=== PATIENT | female | born 1985 | race Caucasian/White ===

== ENCOUNTER 2019-06-05 17:47 | Inpatient (IN) | payer OTHER ==
[~2019-06-05] VITALS: Ht 167.6 cm; Wt 70.4 kg
[2019-06-05 18:41] LABS: HEMATOCRIT 46.2 % (36.0-47.0); HEMOGLOBIN 15.1 g/dl (12.0-15.5); MEAN CORPUSCULAR HEMOGLOBIN 29.9 pg (27.0-33.0); MEAN CORPUSCULAR HGB CONC 32.7 g/dl (32.0-36.5); MEAN CORPUSCULAR VOLUME 91.5 fl (80.0-96.0); PLATELET COUNT, AUTOMATED 213 10^3/uL (150-450); RED BLOOD COUNT 5.05 10^6/uL (4.00-5.40); WHITE BLOOD COUNT 10.3 10^3/uL (4.0-10.0)
--- NOTE | 2019-06-05 19:03 | REP ---
RIGHT ANKLE COMPLETE: 06/05/2019. Clinical history: Trauma, fell on ice. Findings: No prior studies. Four views show trimalleolar fracture with some lateral and posterior subluxation of the talus on the tibial plafond. Fracture medial malleolus is displaced as was the posterior malleolar fragment which is extending posteriorly and superiorly. There is a distal fibular fracture with posterior displacement and minimal angulation. The mortise joint is disrupted as described with the subluxation. Subtalar joints intact. Calcaneus without fracture. Talonavicular and calcaneocuboid joints normal. Impression: 1. Trimalleolar fracture with posterior and lateral subluxation of the talus on the tibial plafond. Electronically Signed by Judah Amin MD 06/05/2019 08:20 P
[2019-06-05 19:08] LABS: HCG, SERUM QUALITATIVE NEGATIVE (NEGATIVE)
[2019-06-05 19:10] LABS: BLOOD UREA NITROGEN 7 MG/DL (7-18); CALCIUM LEVEL 9.5 MG/DL (8.5-10.1); CARBON DIOXIDE LEVEL 28 MEQ/L (21-32); CHLORIDE LEVEL 108 MEQ/L (98-107); CREATININE FOR GFR 0.79 MG/DL (0.55-1.30); GLOMERULAR FILTRATION RATE > 60.0 (>60); GLUCOSE, FASTING 77 MG/DL (70-100); POTASSIUM SERUM 3.6 MEQ/L (3.5-5.1); SODIUM LEVEL 139 MEQ/L (136-145)
[2019-06-05] MEDS ORDERED: ONDANSETRON 4MG/2ML VIAL (J2405) IV ONE (19:15)
[2019-06-05] MEDS ORDERED: MORPHINE 4 MG/ML 1ML VIAL/SYRINGE (J2270) IV ONE (19:15)
--- NOTE | 2019-06-05 19:37 | REPVR ---
PROCEDURE INFORMATION: Exam: CT Right Lower Extremity Without Contrast, Ankle Exam date and time: 06/05/2019 7:09 PM Age: 33 years old Clinical indication: Injury or trauma; Fall; Initial encounter; Fracture, traumatic; Closed fracture; Ankle; Right; Not specified; Additional info: Further evaluate right ankle fracture; S/P fall TECHNIQUE: Imaging protocol: CT of the Right lower extremity without contrast was performed. Exam focused on the ankle. Radiation optimization: All CT scans at this facility use at least one of these dose optimization techniques: automated exposure control; mA and/or kV adjustment per patient size (includes targeted exams where dose is matched to clinical indication); or iterative reconstruction. COMPARISON: CR Ankle, complete 06/05/2019 6:12 PM FINDINGS: Bones/joints: Comminuted trimalleolar fracture with marked widening of the ankle mortise and rotation of the talus medially. Soft tissues: Soft tissue edema at the ankle. IMPRESSION: 1. Comminuted trimalleolar fracture with marked widening of the ankle mortise and rotation of the talus medially. 2. Soft tissue edema at the ankle. Electronically signed by: Roberto Carlos Pappas On 06/05/2019 19:37:44 PM
[2019-06-05] MEDS ORDERED: NS 1,000 ML IV SCH (19:48)
[2019-06-05] MEDS ORDERED: fentaNYL 100 MCG/2 ML INJECTION (J3010) IV ONE ×4 (20:00→21:00)
[2019-06-05] MEDS: propofoL 200 MG/20 ML VIAL IV PRN ×5 (20:10→20:29)
[2019-06-05 22:57] VITALS: BP 138/76
[2019-06-05] MEDS ORDERED: ACETAMINOPHEN TAB 650MG DOSE (2X325MG) PO PRN (23:00)
[2019-06-05] MEDS ORDERED: PROMETHAZINE INJ 25 MG/ML VIAL (J2550) IV PRN (23:00)
[2019-06-05] MEDS ORDERED: PERCOCET 5MG/325MG TAB PO PRN ×2 (23:00)
[2019-06-06] MEDS: LR 1,000 ML IV SCH ×3 (00:40→20:35)
[2019-06-06] MEDS: MORPHINE 4 MG/ML 1ML VIAL/SYRINGE (J2270) IV PRN ×4 (00:40→11:54)
--- NOTE | 2019-06-06 01:16 | REP ---
Clinical: Post reduction. Technique: Portable AP and lateral views of the right ankle. Findings: The patient is status post satisfactory reduction for comminuted medial and lateral ankle fractures. Overlying soft tissue swelling noted. Impression: Relatively satisfactory reduction. Electronically Signed by Bolivar Thurman MD 06/06/2019 01:07 A
[2019-06-06 05:57] VITALS: BP 139/74
[2019-06-06] MEDS ORDERED: ceFAZolin SOD 2 GM in IV 1 EA IV ONE (06:00)
--- NOTE | 2019-06-06 10:19 | CR ---
DATE OF CONSULTATION: 06/05/2019 CHIEF COMPLAINT: Right ankle pain and deformity. HISTORY OF PRESENT ILLNESS: This 33-year-old woman was out with her dog caused her to slip twisting the ankle. She had a significant ankle deformity and pain. Amelia a crack. Was brought into the emergency room (ER). Injury happened at 5:15. Emergency room (ER) x-rays revealed an ankle fracture-dislocation trimalleolar type with a large posterior malleolar fragment. CAT scan revealed same. The patient denies numbness, tingling. Complains of pain. ALLERGIES: NO KNOWN DRUG ALLERGIES. MEDICATIONS: Takes no medications. SURGICAL HISTORY: Multiple (C) sections. SOCIAL HISTORY: Her is in , deployed in [facility]. She does smoke cigarettes. She has several children at home the eldest of which is 18. REVIEW OF SYSTEMS: Complains only of ankle pain and deformity. She is not complaining of headache, shortness of breath, chest pain, abdominal pain, endocrine problems, or other medical malady. Not complaining of skin condition or any other musculoskeletal conditions. No neurologic issues. No endocrine issues. IMAGING: As above. CLINICAL EXAM: She is alert, oriented and cooperative. She is uncomfortable though appropriate. She is a pleasant person. female. Weighs approximately 150 pounds. No deformity except on the right lower extremity, which has an obvious fracture-dislocation. The foot is warm and well-perfused, nonedematous. No skin wounds. No fracture, blisters. Soft calves. No effusion at the knee. Contralateral side uninvolved. Conscious sedation administered by ER. I was present and reduced the fracture. Placed a long-leg cast. Split the cast. Postreduction x-rays reflect acceptable alignment AP and lateral. IMPRESSION: Trimalleolar fracture-dislocation now reduced. RECOMMENDATIONS: This is a surgical injury. I coordinated with Dr. Sarkar our foot and ankle specialist. The patient will be admitted for elevation, pain management, and definitive surgical intervention. Coordinated with the emergency as well as the operating room to put the patient on the operating room schedule tomorrow afternoon. Prior to surgery, the extremity will be inspected for blisters and Dr. Sarkar will likely proceed with the definitive fixation so long as the skin does not have fracture blisters. I talked about this with the patient who understands. For further details, please refer to the medical record.
[2019-06-06 14:14] VITALS: BP 142/87
[2019-06-06] MEDS ORDERED: fentaNYL 100 MCG/2 ML INJECTION (J3010) As Ordered ONE ×2 (15:14→17:39)
[2019-06-06] MEDS ORDERED: MIDAZOLAM INJ 2 MG/2 ML VIAL (J2250) As Ordered ONE ×2 (15:14→16:23)
[2019-06-06] MEDS ORDERED: ceFAZolin 2 GM/D5W 50 ML IV BAG (J0690 PER 500MG) As Ordered ONE (15:21)
[2019-06-06] MEDS ORDERED: MIDAZOLAM INJ 2 MG/2 ML VIAL (J2250) IV STA (15:49)
[2019-06-06] MEDS ORDERED: dexameTHASONE 4 MG/ML 1ML VIAL (J1100) As Ordered ONE (16:23)
[2019-06-06] MEDS ORDERED: fentaNYL 250 MCG/5 ML INJECTION (J3010) As Ordered ONE (16:23)
[2019-06-06] MEDS ORDERED: ROCURONIUM BROMIDE 50 MG/5 ML VIAL As Ordered ONE ×2 (16:23→16:37)
[2019-06-06] MEDS ORDERED: ONDANSETRON 4MG/2ML VIAL (J2405) As Ordered ONE ×2 (16:23→20:10)
[2019-06-06] MEDS ORDERED: SUGAMMADEX SODIUM 500 MG/5 ML VIAL (BRIDION) As Ordered ONE (16:23)
[2019-06-06] MEDS ORDERED: LIDOCAINE 2% INJ 100 MG/5 ML SDV (FOR ANES.) As Ordered ONE (16:23)
[2019-06-06] MEDS ORDERED: METOCLOPRAMIDE INJ 10MG/2ML VIAL (J2765) As Ordered ONE (16:23)
[2019-06-06] MEDS ORDERED: propofoL 200 MG/20 ML VIAL As Ordered ONE (16:23)
[2019-06-06] MEDS ORDERED: KETOROLAC 60 MG/2 ML VIAL (J1885) As Ordered ONE (16:37)
[2019-06-06] MEDS ORDERED: PHENYLephrine HCL 500 MCG/5 ML (100MCG/ML) SYRINGE (J2370) As Ordered ONE (16:38)
[2019-06-06] MEDS ORDERED: ACETAMINOPHEN 1000MG 100ML IV BTL (OFIRMEV) (J0131 PER 10MG) As Ordered ONE (16:38)
[2019-06-06] MEDS ORDERED: ROPIvacaine 0.5% 30 ML INJECTION (J2795 PER 1MG) ONE (18:57)
[2019-06-06] MEDS ORDERED: EPINEPHrine INJ 1 MG/ML 1ML VIAL ONE (18:57)
[2019-06-06] MEDS ORDERED: dexameTHASONE 10 MG/1 ML VIAL PRES.FREE (J1100) ONE (18:57)
[2019-06-06] MEDS ORDERED: DESFLURANE 240 ML INHALANT As Ordered ONE (19:14)
[2019-06-06] MEDS ORDERED: KETOROLAC 30 MG/ML VIAL (J1885) IV PRN (19:20)
[2019-06-06] MEDS ORDERED: MEPERIDINE INJ 25 MG/ML VIAL (J2175) As Ordered ONE (19:45)
[2019-06-06] MEDS: MEPERIDINE INJ 25 MG/ML VIAL (J2175) IV PRN ×2 (19:50→20:00)
[2019-06-06] MEDS ORDERED: MORPHINE 2 MG/ML 1ML VIAL (J2270) IV PRN ×2 (20:00→20:15)
[2019-06-06] MEDS ORDERED: fentaNYL 100 MCG/2 ML INJECTION (J3010) IV PRN (20:00)
[2019-06-06] MEDS ORDERED: ONDANSETRON 4MG/2ML VIAL (J2405) IV PRN (20:00)
[2019-06-06] MEDS ORDERED: LR 1,000 ML IV SCH (20:00)
[2019-06-06] MEDS ORDERED: oxyCODONE 5MG TAB As Ordered ONE (20:09)
[2019-06-06] MEDS ORDERED: FLEET ENEMA PR PRN (20:30)
[2019-06-06] MEDS ORDERED: oxyCODONE 5MG TAB PO PRN ×2 (20:30)
--- NOTE | 2019-06-06 20:46 | REP ---
C-ARM VIEWS RIGHT ANKLE: Multiple C-Arm views right ankle performed during placement of metallic plate and screws in the distal fibula as well as in the distal tibia. Final views show the osseous structures to be well aligned. The ankle mortise is anatomic. 3 minutes 8 seconds fluoroscopy time utilized. Electronically Signed by Luis Thao MD 06/07/2019 12:49 P
[2019-06-06 20:50] VITALS: BP 120/75
[2019-06-06 21:20] VITALS: BP 120/74
[2019-06-06 22:20] VITALS: BP 116/72
[2019-06-06 23:20] VITALS: BP 117/74
--- NOTE | 2019-06-07 00:14 | RO ---
DATE OF PROCEDURE: 06/06/2019 PREPROCEDURE DIAGNOSIS: Right trimalleolar fracture dislocation. POSTPROCEDURE DIAGNOSIS: Right trimalleolar fracture dislocation. PROCEDURE: Open reduction internal fixation right trimalleolar fracture. SURGEON: Kathia Sarkar MD [employer] CHAIN FEEDER: Jagjit Caban MD ANESTHESIA: General endotracheal, popliteal nerve block. ESTIMATED BLOOD LOSS: 100 mL. COMPLICATIONS: None. CONDITION: Stable to recovery. IMPLANTS: Synthes 8-hole one-third tubular plate, 5-hole one-third tubular plate with associated screws and two 4.0 mm cannulated screws. INDICATIONS: Altagracia Corrigan is a 33-year-old female who sustained a right trimalleolar fracture dislocation after a mechanical fall. Her ankle was preliminarily reduced in the emergency room (ER) and plans were made for surgery. The risks and benefits of surgery were discussed with the patient in detail and included but are not limited to infection, damage to nerves and blood vessels, continued pain and stiffness, need for additional procedures. Informed consent was obtained. DESCRIPTION OF PROCEDURE: The patient was met in the post-anesthesia care unit (PACU) where her right lower extremity was marked as the correct operative site. I did a skin check, and it was satisfactory for surgery. She underwent a popliteal nerve block. She was then taken to the operating room and underwent general anesthesia. A well-padded tourniquet was placed on the upper thigh. A Morgan was placed and removed at the end of the case. The right lower extremity was then prepped and draped in the normal sterile fashion. She received antibiotics within 60 minutes prior to incision. An official time-out was held where the correct patient, operative procedure, and operative side were verified. Following this, the leg was exsanguinated to 250 mmHg and tourniquet was inflated. An incision was made midway between the Achilles tendon and distal fibula. This was an extensile incision as the distal fibula fracture was extended quite proximal. I then dissected medial to the peroneal tendons and sural nerve was identified. This was protected throughout the case. FHL fascia was incised and retracted medially. The large posterior malleolar fracture was easily identified. It was cleaned of hematoma and debris. It was comminuted, especially at the proximal aspect. It was reduced using a ball spike and pinned in place. Reductions were confirmed on AP and especially lateral view. Articular surface was found to be intact without any step-off. I secured this with a 3.5 mm lag screw and then placed the 5-hole plate over the fracture as well, acting as a buttress. AP, lateral and oblique views were performed and found to be satisfactory with reduction and hardware placement of the posterior malleolar fracture. Next, attention was turned to the distal fibula. Peroneal tendons were retracted medially. Fibula was comminuted with a large butterfly fragment. It was reduced using a series of pointed reduction clamps after the fracture was cleaned of hematoma and debris. I was able to place a lag screw from lateral to medial. I then placed a posterior one-third tubular plate. This was secured with 3.5 mm and 4 cancellous screws. There was satisfactory reduction and hardware placement on multiple orthogonal views. At this point, copious irrigation was performed and #2-0 Vicryl sutures were used for partial closure of the posterior wound as there was concern that her swelling was increasing, and I wanted to ensure that there would be adequate closure at the end of the case. The tourniquet was then let down. I made an incision directly over the medial malleolus. Fracture was identified and cleaned of hematoma and debris. I reduced it with a pointed reduction clamp. I then placed two #4-0 partially threaded cannulated screws. There was adequate reduction on AP, lateral and oblique views. At this point, copious irrigation was performed. Soft tissues were closed with #3-0 Vicryl and skin was closed with #3-0 nylon. The patient was placed into a well-padded splint after a sterile dressing had been applied. She was extubated and transferred to the recovery room in stable condition. PLAN: The patient will be non-weightbearing on the right lower extremity for at least 6 weeks. She will have strict elevation and antibiotics for 24 hours. She will be on aspirin for deep vein thrombosis (DVT) prophylaxis.
[2019-06-07 00:24] VITALS: BP 114/72
[2019-06-07] MEDS: ACETAMINOPHEN 500 MG TAB PO SCH ×2 (00:40→05:11)
[2019-06-07] MEDS: ceFAZolin SOD 2 GM in IV 1 EA IV SCH ×2 (00:41→08:11)
[2019-06-07 01:22] VITALS: BP 115/71
[2019-06-07 05:11] VITALS: BP 118/69
[2019-06-07] MEDS: LR 1,000 ML IV SCH (06:15)
[2019-06-07] MEDS ORDERED: ASPI81CH33 PO (06:24)
[2019-06-07] MEDS ORDERED: ACET-683 PO (06:24)
[2019-06-07] MEDS ORDERED: OXYC-517 PO (06:24)
[2019-06-07] MEDS ORDERED: VITAMIN D 1,000 INTERNATIONAL UNITS TABLET PO SCH (09:00)
[2019-06-07] MEDS ORDERED: ASPIRIN 81 MG CHEW TABLET PO SCH (09:00)
[2019-06-07 10:00] VITALS: BP 118/74
== END 2019-06-07 11:15 | disposition home or self-care (01) | DRG 494 ==
LOC: M ED 17:47 → EDSEX 17:47 → EDBD 17:47 → M ED INP 21:00 → ENRESERV 22:21 → M MS5PR 22:48
PROVIDERS: ADMIT Orthopaedic Surgery; ATTEND Orthopaedic Surgery
PROC: 0QSJ04Z Reposition Right Fibula with Internal Fixation Device, Open Approach (ICD-10-PCS; principal; 2019-06-06 15:00)
DX: S82.851A Displaced trimalleolar fracture of right lower leg, initial encounter for closed fracture (principal); Y93.K1 Activity, walking an animal; W18.09XA Striking against other object with subsequent fall, initial encounter; Y92.89 Other specified places as the place of occurrence of the external cause; F17.210 Nicotine dependence, cigarettes, uncomplicated; Y99.8 Other external cause status

== ENCOUNTER → 2020-08-13 | Outpatient (REF) | payer OTHER ==
[~2020-08-13] MED LIST: ACET-683 PO; ASPI81CH33 PO; OXYC-517 PO
== END ==
LOC: M PLALAB 08:39
PROVIDERS: ATTEND Nurse Practitioner Women's Health
DX: Z12.4 Encounter for screening for malignant neoplasm of cervix (principal)

== ENCOUNTER → 2021-01-04 | Outpatient (CLI) | payer OTHER ==
[2021-01-04 15:05] LABS: HEMATOCRIT 39.3 % (36.0-47.0); HEMOGLOBIN 13.4 g/dl (12.0-15.5); MEAN CORPUSCULAR HEMOGLOBIN 30.1 pg (27.0-33.0); MEAN CORPUSCULAR HGB CONC 34.1 g/dl (32.0-36.5); MEAN CORPUSCULAR VOLUME 88.3 fl (80.0-96.0); PLATELET COUNT, AUTOMATED 170 10^3/uL (150-450); RED BLOOD COUNT 4.45 10^6/uL (4.00-5.40); WHITE BLOOD COUNT 9.3 10^3/uL (4.0-10.0)
[2021-01-04 16:18] LABS: HEPATITIS C VIRUS ABY INDEX < 0.0 INDEX (<0.8); HIV 1&2 SCREEN CENTAUR NEGATIVE (NEGATIVE)
[2021-01-04 16:36] LABS: GC DNA AMPLIFICATION NEGATIVE (NEGATIVE)
== END ==
LOC: M PLALAB 13:32
PROVIDERS: ATTEND Advanced Practice Midwife
DX: O09.529 Supervision of elderly multigravida, unspecified trimester (principal)

== ENCOUNTER → 2021-03-01 | Outpatient (CLI) | payer OTHER ==
--- NOTE | 2021-03-01 14:29 | REP ---
INDICATION: ANATOMY. COMPARISON: None. TECHNIQUE: Real-time sonographic evaluation of the gravid uterus performed. FINDINGS: Estimated gestational age is18 weeks 6 days, EDC 07/20/2021. Today's measurements indicate appropriate growth. Presentation: Transverse Placenta is posterior, grade 1, without evidence of placenta previa. heart rate is recorded at 161 beats per minute. Amniotic fluid is subjectively normal. Closed cervical length is measured at 4.6 cm. Biometry chart: BPD: 43 mm, 19 weeks 0 days, 27th percentile. HC: 172 mm, 19 weeks 5 days, 48th percentile AC: 146 mm, 19 weeks 6 days, 51st percentile Femur length: 33 mm, 20 weeks 2 days, 62nd percentile HC to AC ratio: 1.18, normal range 1.06-1.25. Estimated weight: 329g, 56th percentile. anatomy: Cranium: Grossly normal Lateral Ventricles/Choroid Plexus: Grossly normal Posterior Fossa/Cerebellum: Grossly normal Nose/lips/profile: Grossly normal Four chamber heart: Grossly normal Right ventricular outflow tract: Not well seen due to position Left ventricular outflow tract: Not well seen due to position Left-sided stomach: Grossly normal Kidneys: Grossly normal Bladder: Grossly normal Cord Insertion: Grossly normal 3 vessel cord: Grossly normal Spine: Grossly normal IMPRESSION: Viable single intrauterine gestation as above. <Electronically signed by Luis Thao > 03/01/21 [id number]
== END ==
LOC: M WHC 10:49
PROVIDERS: ATTEND Obstetrics & Gynecology
DX: O09.522 Supervision of elderly multigravida, second trimester (principal); O34.219 Maternal care for unspecified type scar from previous cesarean delivery; Z3A.15 15 weeks gestation of pregnancy

== ENCOUNTER → 2021-04-14 | Outpatient (CLI) | payer OTHER ==
[2021-04-14 15:40] LABS: GC DNA AMPLIFICATION NEGATIVE (NEGATIVE)
[2021-04-14 15:46] LABS: MEAN CORPUSCULAR HEMOGLOBIN 30.7 pg (27.0-33.0); MEAN CORPUSCULAR HGB CONC 33.3 g/dl (32.0-36.5); MEAN CORPUSCULAR VOLUME 92.2 fl (80.0-96.0); PLATELET COUNT, AUTOMATED 179 10^3/uL (150-450); RED BLOOD COUNT 3.58 10^6/uL (4.00-5.40)
== END ==
LOC: M PLALAB 11:32
PROVIDERS: ATTEND Advanced Practice Midwife
DX: Z36.89 Encounter for other specified antenatal screening (principal); Z3A.23 23 weeks gestation of pregnancy

== ENCOUNTER → 2021-04-14 | Outpatient (CLI) | payer OTHER ==
--- NOTE | 2021-04-15 04:55 | REP ---
INDICATION: F/U ANATOMY COMPARISON: 03/01/2021 TECHNIQUE: Transabdominal obstetrical ultrasound with color Doppler evaluation. FINDINGS: Examination demonstrates a single live intrauterine in cephalic presentation. motion is identified by technologist. Placenta is noted posterior/right lateral and grade 1 without evidence for placenta previa or abruption. Amniotic fluid volume is normal. Cervix measures 3.7 cm in length and appears closed. Selected gestational age: 26 weeks 0 days with KP 07/21/2021. Gestational age by current measurements 26 weeks 2 days with KP 07/19/2021. FHR equals 150 beats per minute. Estimated weight 1018 grams (81stpercentile). Anatomical assessment demonstrates normal structures including four-chamber and outflow tracts. IMPRESSION: Single live intrauterine in cephalic presentation demonstrating appropriate interval growth. In conjunction with prior examination anatomical assessment is complete and normal. <Electronically signed by Bolivar Thurman > 04/15/21 [id number]
== END ==
LOC: M WHC 12:39
PROVIDERS: ATTEND Advanced Practice Midwife
DX: Z36.89 Encounter for other specified antenatal screening (principal); Z3A.23 23 weeks gestation of pregnancy

== ENCOUNTER → 2021-05-28 | Outpatient (CLI) | payer OTHER | LOC: M LAB 07:00 | PROVIDERS: ATTEND Advanced Practice Midwife | DX: Z34.92 Encounter for supervision of normal pregnancy, unspecified, second trimester (principal); Z3A.27 27 weeks gestation of pregnancy ==

== ENCOUNTER → 2021-06-23 | Outpatient (REF) | payer OTHER ==
[~2021-06-23] MED LIST changes: +COLA100C5 PO; +IBUP80TA PO; +PERCOCET PO; +PREN1TAB18 PO; +TUMS750C22 PO
== END ==
LOC: M PLALAB 10:32
PROVIDERS: ATTEND Specialist
DX: Z34.83 Encounter for supervision of other normal pregnancy, third trimester (principal); Z36.85 Encounter for antenatal screening for Streptococcus B; Z53.9 Procedure and treatment not carried out, unspecified reason

== ENCOUNTER → 2021-06-23 | Outpatient (REF) | payer OTHER ==
[~2021-06-23] MED LIST changes: -COLA100C5 PO; -IBUP80TA PO; -PERCOCET PO; -PREN1TAB18 PO; -TUMS750C22 PO
== END ==
LOC: M SFHCWAGY 12:55
PROVIDERS: ATTEND Specialist
DX: Z34.83 Encounter for supervision of other normal pregnancy, third trimester (principal)

== ENCOUNTER 2021-06-30 09:50 | Inpatient (IN) | payer OTHER ==
[~2021-06-30] VITALS: Ht 167.6 cm; Wt 73.7 kg
[2021-06-30] MEDS: PRENATAL VITAMINS CHEWABLE TABLET PO SCH (09:00)
[~2021-06-30 09:50] MED LIST changes: +PREN1TAB18 PO
[2021-06-30] MEDS ORDERED: TUMS750C22 PO (10:09)
[2021-06-30] MEDS ORDERED: AZITHROMYCIN INJ 500MG VIAL As Ordered ONE (10:34)
[2021-06-30] MEDS ORDERED: LACTATED RINGER'S 1000 ML IV STA (10:48)
[2021-06-30] MEDS ORDERED: ceFAZolin SOD 2 GM in IV 1 EA IV ONE (10:50)
[2021-06-30] MEDS ORDERED: CARBOPROST TROMETHAMINE 250 MCG/ML AMP IM PRN (10:50)
[2021-06-30] MEDS ORDERED: BICITRA 30ML SOLN UDC PO ONE (10:50)
[2021-06-30] MEDS ORDERED: TRANEXAMIC ACID INJection 1,000 MG in NS 100 ML IV PRN (10:50)
[2021-06-30] MEDS ORDERED: METHYLERGONOVINE MALEATE 0.2 MG/ML VIAL (J2210) IM PRN (10:50)
[2021-06-30] MEDS ORDERED: AZITHROMYCIN INJ 500 MG, VIAL MATE ADAPTER 1 EACH in NS 250 ML IV ONE (10:50)
[2021-06-30] MEDS ORDERED: LR 1,000 ML IV SCH (10:50)
[2021-06-30 11:01] LABS: HEMATOCRIT 36.5 % (36.0-47.0); HEMOGLOBIN 12.3 g/dl (12.0-15.5); MEAN CORPUSCULAR HEMOGLOBIN 29.3 pg (27.0-33.0); MEAN CORPUSCULAR HGB CONC 33.7 g/dl (32.0-36.5); MEAN CORPUSCULAR VOLUME 86.9 fl (80.0-96.0); PLATELET COUNT, AUTOMATED 215 10^3/uL (150-450); WHITE BLOOD COUNT 16.3 10^3/uL (4.0-10.0)
[2021-06-30] MEDS ORDERED: NALBUPHINE HCL 10 MG/ML AMP (J2300) IV PRN (12:03)
[2021-06-30] MEDS ORDERED: diphenhydrAMINE 50MG/ML VIAL (J1200) IV PRN (12:03)
[2021-06-30] MEDS ORDERED: NALOXONE INJ 0.4MG/1ML VIAL (J2310 PER 1MG) IV PRN ×2 (12:03)
[2021-06-30] MEDS ORDERED: ONDANSETRON 4MG/2ML VIAL IV PRN ×3 (12:03→13:50)
[2021-06-30] MEDS ORDERED: METOCLOPRAMIDE INJ 10MG/2ML VIAL (J2765 PER 1) IV PRN (12:03)
[2021-06-30] MEDS ORDERED: RHOGAM 300 MCG (1500 IU) INJ (J2790) IM SCH (12:05)
[2021-06-30] MEDS ORDERED: MEASLES,MUMPS,RUBELLA VACCINE INJ (MMR-II) (90707) SC SCH (12:05)
[2021-06-30] MEDS ORDERED: OXYTOCIN DRIP 30 UNITS in IV 1 EA IV SCH (12:05)
[2021-06-30] MEDS ORDERED: MOM 30ML SUSPENSION UDC PO PRN (12:05)
[2021-06-30] MEDS ORDERED: PERCOCET 5MG/325MG TAB PO PRN (12:05)
[2021-06-30] MEDS ORDERED: OXYTOCIN INJ 10 UNITS/ML VIAL (J2590) As Ordered ONE (12:11)
[2021-06-30] MEDS ORDERED: MORPHINE PRES-FREE INJ 10 MG/10 ML VIAL (J2274) As Ordered ONE (12:11)
[2021-06-30] MEDS ORDERED: KETOROLAC 60MG 2ML VIAL As Ordered ONE (12:31)
[2021-06-30] MEDS ORDERED: ONDANSETRON 4MG/2ML VIAL As Ordered ONE (12:43)
[2021-06-30] MEDS ORDERED: KETOROLAC 30 MG/ML 1ML VIAL IV SCH (13:00)
[2021-06-30] MEDS ORDERED: OXYTOCIN 30 UNITS IN 0.9% NaCl 500ML IV BAG (J2590) As Ordered ONE (13:47)
[2021-06-30] MEDS ORDERED: fentaNYL 100 MCG/2 ML INJECTION As Ordered ONE (13:47)
[2021-06-30] MEDS ORDERED: oxyCODONE 5MG TAB PO PRN (13:50)
[2021-06-30] MEDS ORDERED: fentaNYL 100 MCG/2 ML INJECTION IV PRN (13:50)
[2021-06-30 15:15] VITALS: BP 118/66
[2021-06-30 15:45] VITALS: BP 122/71
[2021-06-30 16:45] VITALS: BP 149/72
[2021-06-30 18:00] VITALS: BP 111/63
[2021-06-30] MEDS: LR 1,000 ML IV SCH (18:09)
[2021-06-30] MEDS: KETOROLAC 30 MG/ML 1ML VIAL IV SCH (18:35)
[2021-06-30] MEDS: DOCUSATE SODIUM 100MG CAPSULE PO SCH (21:00)
[2021-06-30] MEDS: SIMETHICONE 80MG CHEW TAB PO PRN (21:15)
[2021-06-30 22:16] VITALS: BP 112/66
[2021-07-01] VITALS (7 sets, daily range): BP systolic 105–130; BP diastolic 55–70
[2021-07-01] MEDS: KETOROLAC 30 MG/ML 1ML VIAL IV SCH ×2 (01:00→08:05)
[2021-07-01] MEDS: PRENATAL VITAMINS CHEWABLE TABLET PO SCH (08:05)
[2021-07-01] MEDS: DOCUSATE SODIUM 100MG CAPSULE PO SCH ×2 (08:05→20:40)
[2021-07-01 08:24] LABS: HEMATOCRIT 29.8 % (36.0-47.0); MEAN CORPUSCULAR HEMOGLOBIN 29.2 pg (27.0-33.0); MEAN CORPUSCULAR HGB CONC 32.6 g/dl (32.0-36.5); MEAN CORPUSCULAR VOLUME 89.8 fl (80.0-96.0); PLATELET COUNT, AUTOMATED 171 10^3/uL (150-450); RED BLOOD COUNT 3.32 10^6/uL (4.00-5.40); WHITE BLOOD COUNT 12.5 10^3/uL (4.0-10.0)
[2021-07-01 08:28] LABS: HEMOGLOBIN 9.7 g/dl (12.0-15.5)
[2021-07-01] MEDS: LR 1,000 ML IV SCH ×2 (09:06→12:05)
[2021-07-01] MEDS ORDERED: PERCOCET PO (09:56)
[2021-07-01] MEDS ORDERED: COLA100C5 PO (09:56)
[2021-07-01] MEDS ORDERED: IBUP80TA PO (09:56)
[2021-07-01] MEDS: IBUPROFEN 800 MG TAB PO SCH ×2 (14:29→23:33)
[2021-07-01] MEDS: PERCOCET 5MG/325MG TAB PO PRN ×2 (14:30→20:59)
[2021-07-01] MEDS: SIMETHICONE 80MG CHEW TAB PO PRN (20:41)
[2021-07-02 02:00] VITALS: BP 109/62
[2021-07-02] MEDS: PERCOCET 5MG/325MG TAB PO PRN (03:58)
[2021-07-02 06:00] VITALS: BP 106/59
[2021-07-02] MEDS: IBUPROFEN 800 MG TAB PO SCH (07:15)
[2021-07-02] MEDS: DOCUSATE SODIUM 100MG CAPSULE PO SCH (09:47)
[2021-07-02] MEDS: PRENATAL VITAMINS CHEWABLE TABLET PO SCH (09:47)
[2021-07-02 10:00] VITALS: BP 121/74
== END 2021-07-02 13:15 | disposition home or self-care (01) | DRG 785 ==
LOC: M LDO 09:50 → M LDI 10:27 → M OBS 15:10
PROVIDERS: ADMIT Obstetrics & Gynecology; ATTEND Obstetrics & Gynecology
PROC: 0UB60ZZ Excision of Left Fallopian Tube, Open Approach (ICD-10-PCS; 2021-06-30)
PROC: 10D00Z1 Extraction of Products of Conception, Low, Open Approach (ICD-10-PCS; principal; 2021-06-30 12:02)
DX: O34.211 Maternal care for low transverse scar from previous cesarean delivery (principal); Z3A.37 37 weeks gestation of pregnancy; O99.334 Smoking (tobacco) complicating childbirth; F17.210 Nicotine dependence, cigarettes, uncomplicated; O75.82 Onset (spontaneous) of labor after 37 completed weeks of gestation but before 39 completed weeks gestation, with delivery by (planned) cesarean section; O24.420 Gestational diabetes mellitus in childbirth, diet controlled; Z53.29 Procedure and treatment not carried out because of patient's decision for other reasons; Z37.0 Single live birth; Z30.2 Encounter for sterilization

== ENCOUNTER → 2022-12-05 | Outpatient (REF) | payer OTHER ==
[~2022-12-05] MED LIST changes: +COLA100C5 PO; +IBUP80TA PO; +PERCOCET PO; +TUMS750C22 PO
== END ==
LOC: M PLALAB 11:26
PROVIDERS: ATTEND Nurse Practitioner Family
DX: Z12.4 Encounter for screening for malignant neoplasm of cervix (principal)

== ENCOUNTER → 2022-12-21 | Outpatient (CLI) | payer OTHER | LOC: M RAD 13:53 | PROVIDERS: ATTEND Nurse Practitioner Family | DX: T83.32XA Displacement of intrauterine contraceptive device, initial encounter (principal); N85.4 Malposition of uterus ==